=== PATIENT | female | born 1980 | race Caucasian/White ===

== ENCOUNTER 2024-10-12 07:36 | Emergency (ER) | payer OTHER, SELFPAY ==
--- NOTE | 2024-10-12 08:27 | EDPHYS ---
Physician Documentation [facility] Name: Leanna Lindsay Age: 44 yrs Sex: Female : 1980 Arrival Date: 10/12/2024 Time: 07:36 Bed DX3 Private MD: ED Physician Arpan Hammond HPI: 10/12 08:21 This 44 yrs old Female presents to ER via Ambulatory with complaints of erica Facial Swelling. 08:21 The patient or guardian reports pain, swelling, tenderness. The complaints affect the [facility] right cheek and mouth. Associated signs and symptoms: The patient has no apparent associated signs or symptoms. Severity of symptoms: At their worst the symptoms were moderate, in the emergency department the symptoms are unchanged. The patient has experienced similar episodes in the past, several times. 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 - Infectious Disease History:: Denies. - Social history:: Smoking status: Reported history of juuling and/or vaping. - Family history:: not pertinent. ROS: 08:21 Constitutional: Negative for fever, chills, and weight loss, Eyes: Negative for injury, erica pain, redness, and discharge, Neck: Negative for injury, pain, and swelling, Cardiovascular: Negative for chest pain, palpitations, and edema, Respiratory: Negative for shortness of breath, cough, wheezing, and pleuritic chest pain, Abdomen/GI: Negative for abdominal pain, nausea, vomiting, diarrhea, and constipation, Back: Negative for injury and pain, : Negative for injury, bleeding, discharge, and swelling, MS/Extremity: Negative for injury and deformity, Skin: Negative for injury, rash, and discoloration, Neuro: Negative for headache, weakness, numbness, tingling, and seizure, 08:21 ENT: Positive for Gum pain Exam: 08:21 Constitutional: This is a well developed, well nourished patient who is awake, alert, erica and in no acute distress. Eyes: Pupils equal round and reactive to light, extra-ocular motions intact. Lids and lashes normal. Conjunctiva and sclera are non-icteric and not injected. Cornea within normal limits. Periorbital areas with no swelling, redness, or edema. Neck: Trachea midline, no thyromegaly or masses palpated, and no cervical lymphadenopathy. Supple, full range of motion without nuchal rigidity, or vertebral point tenderness. No Meningismus. Chest/axilla: Normal chest wall appearance and motion. Nontender with no deformity. No lesions are appreciated. Cardiovascular: Regular rate and rhythm with a normal S1 and S2. No gallops, murmurs, or rubs. Normal PMI, no JVD. No pulse deficits. Respiratory: Lungs have equal breath sounds bilaterally, clear to auscultation and percussion. No rales, rhonchi or wheezes noted. No increased work of breathing, no retractions or nasal flaring. Abdomen/GI: Soft, non-tender, with normal bowel sounds. No distension or tympany. No guarding or rebound. No evidence of tenderness throughout. Back: No spinal tenderness. No costovertebral tenderness. Full range of motion. Skin: Warm, dry with normal turgor. Normal color with no rashes, no lesions, and no evidence of cellulitis. MS/ Extremity: Pulses equal, no cyanosis. Neurovascular intact. Full, normal range of motion., bilateral aka Neuro: Awake and alert, GCS 15, oriented to person, place, time, and situation. Cranial nerves II-XII grossly intact. Motor strength 5/5 in all extremities. Sensory grossly intact. Cerebellar exam normal. Normal gait. Psych: Awake, alert, with orientation to person, place and time. Behavior, mood, and affect are within normal limits. 08:21 Head/face: Noted is swelling, tenderness, that is mild, of the nose and mouth, 08:21 ENT: Mouth: Lips: normal, Oral mucosa: normal, moist, Gums: noted to have cellulitis, reddened, swollen, on the gums and upper right lateral incisor, Vital Signs: 07:48 Weight 120.2 kg; Height 5 ft. 4 in. ; Pain 3/10; jl7 07:51 BP 126 / 84; Pulse 64; Resp 15; Temp 97.3; Pulse Ox 98% ; Pain 3/10; jl7 07:48 Body Mass Index 45.49 (120.20 kg, 162.56 cm) jl7 07:48 Pain Scale: Adult jl7 07:51 Pain Scale: Adult jl7 [place] Coma Score: 08:21 Eye Response: spontaneous(4). Motor Response: obeys commands(6). Verbal Response: erica oriented(5). Total: 15. 08:25 Eye Response: spontaneous(4). Motor Response: obeys commands(6). Verbal Response: erica oriented(5). Total: 15. MDM: 07:43 Medical Screening Exam initiated [facility] 08:25 Data reviewed: vital signs, nurses notes. Consideration of Admission/Observation erica Escalation of care including admission/observation considered. I considered the following discharge prescriptions or medication management in the emergency department Medications were administered in the Emergency Department. See MAR. Test considered but Not performed: Labs: no cbc , no comp . Care significantly affected by the following chronic conditions: dental caries. Administered Medications: 08:42 Drug: Amoxicillin-Clavulanate PO 875 mg PO once Route: PO; [facility] 08:42 Follow up: Response: Medication administered at discharge. [facility] 08:42 Not Given (Patient Refused): [id number] mg PO once 7 Disposition Summary: 10/12/24 08:26 Discharge Ordered Notes: Location: Home erica Problem: new erica Symptoms: have improved erica Condition: Stable erica Diagnosis - Dental caries, unspecified erica - Dental alveolar anomalies erica Followup: erica - With: Private Physician - When: 2 - 3 days - Reason: Recheck today's complaints, Continuance of care, Re-evaluation by your physician Followup: erica - With: Suraj Avelar DDS - When: 2 - 3 days - Reason: Recheck today's complaints, Re-evaluation by your physician Discharge Instructions: - Discharge Summary Sheet erica - Dental Caries, Adult erica - Dental Pain erica - Dental Pain, [id number] [facility] - Diet and Dental Disease [facility] Forms: - Medication Reconciliation Form [facility] - Antibiotic Education erica - Prescription Opioid Use erica - Patient Portal Instructions [facility] - Leadership Thank You Letter [facility] Prescriptions: - Amoxicillin 500 mg Oral Capsule - take 1 capsule ORAL route every 8 hours for 10 days; 30 tablet; Refills: 0, erica Product Selection Permitted - Ibuprofen 600 mg Oral Tablet - take 1 tablet ORAL route every 6 hours As needed take with food; 30 tablet; [facility] Refills: 0, Product Selection Permitted Signatures: Arpan Hammond MD MD cha Leal, Jahala RN RN jl7
--- NOTE | 2024-10-12 08:27 | ER ---
Nurse's Notes [facility] Name: Leanna Lindsay Age: 44 yrs Sex: Female : 1980 Arrival Date: 10/12/2024 Time: 07:36 Bed DX3 Private MD: Diagnosis: Dental caries, unspecified;Dental alveolar anomalies Presentation: 10/12 07:48 Chief complaint: Patient states: Right lateral incisor cap popped off with minor jl7 swelling to gums and woke this morning with swelling up to right eye. Coronavirus screen: At this time, the client does not indicate any symptoms associated with coronavirus-19. Ebola Screen: No symptoms or risks identified at this time. Initial Sepsis Screen: Does the patient meet any 2 criteria? No. Patient's initial sepsis screen is negative. Does the patient have a suspected source of infection? No. Patient's initial sepsis screen is negative. Risk Assessment: Do you want to hurt yourself or someone else? Patient reports no desire to harm self or others. Onset of symptoms was October 12, 2024. 07:48 Method Of Arrival: Ambulatory jl7 07:48 Acuity: MELANIE 4 jl7 Triage Assessment: 07:51 General: Appears in no apparent distress. uncomfortable, Behavior is calm, cooperative, jl7 appropriate for age. Pain: Complains of pain in face Pain currently is 3 out of 10 on a pain scale. EENT: Absence of teeth noted - upper right lateral incisor (#7). Derm: Skin is pink, warm \T\ dry. Musculoskeletal: Swelling present in face. 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 - Infectious Disease History:: Denies. - Social history:: Smoking status: Reported history of juuling and/or vaping. - Family history:: not pertinent. Screenin:43 [facility] ED Fall Risk Assessment (Adult) History of falling in the last 3 months, jl7 including since admission No falls in past 3 months (0 pts) Confusion or Disorientation No (0 pts) Intoxicated or Sedated No (0 pts) Impaired Gait No (0 pts) Mobility Assist Device Used No (0 pt) Altered Elimination No (0 pt) Score/Fall Risk Level 0 - 2 = Low Risk Oriented to surroundings, Maintained a safe environment. Abuse screen: Denies threats or abuse. Denies injuries from another. Nutritional screening: No deficits noted. Tuberculosis screening: No symptoms or risk factors identified. Vital Signs: 07:48 Weight 120.2 kg; Height 5 ft. 4 in. ; Pain 3/10; jl7 07:51 BP 126 / 84; Pulse 64; Resp 15; Temp 97.3; Pulse Ox 98% ; Pain 3/10; jl7 07:48 Body Mass Index 45.49 (120.20 kg, 162.56 cm) jl7 07:48 Pain Scale: Adult jl7 07:51 Pain Scale: Adult jl7 [place] Coma Score: 08:21 Eye Response: spontaneous(4). Motor Response: obeys commands(6). Verbal Response: erica oriented(5). Total: 15. 08:25 Eye Response: spontaneous(4). Motor Response: obeys commands(6). Verbal Response: erica oriented(5). Total: 15. ED Course: 07:39 Patient arrived in ED. mr 07:43 Arpan Hammond MD is Attending Physician. erica 07:47 Farrukh Pham, JOSE ALFREDO is Primary Nurse. jl7 07:51 Triage completed. jl7 07:51 Arm band placed on right wrist. jl7 08:26 Suraj Avelar DDS is Referral Physician. erica 08:43 Patient has correct armband on for positive identification. Provided Education on: jl7 discharge. 08:43 No provider procedures requiring assistance completed. Patient did not have IV access jl7 during this emergency room visit. Administered Medications: 08:42 Drug: Amoxicillin-Clavulanate PO 875 mg PO once Route: PO; jl7 08:42 Follow up: Response: Medication administered at discharge. jl7 08:42 Not Given (Patient Refused): [id number] mg PO once jl7 Medication: 08:43 VIS not applicable for this client. jl7 Outcome: 08:26 Discharge ordered by . [facility] 08:43 Discharged to home ambulatory, jl7 08:43 Condition: stable 08:43 Discharge instructions given to patient, Instructed on discharge instructions, follow up and referral plans. medication usage, Demonstrated understanding of instructions, follow-up care, medications, Prescriptions given X 2 08:44 Patient left the ED. jl7 Signatures: Arpan Hammond MD MD cha Rivera Shiloh, [facility] Reg Farrukh Pollard, RN RN jl7
[2024-10-12] MEDS ORDERED: AMOX/K CLAV 875 MG TAB ONE (08:36)
[2024-10-12 09:00] VITALS: BP 126/84; TEMP 97.3; O2SAT 98
== END 2024-10-12 08:44 | disposition home or self-care (01) ==
LOC: ER 07:36
DX: K02.9 Dental caries, unspecified (principal); M26.79 Other specified alveolar anomalies
CPT/HCPCS: 99283